=== PATIENT | male | born 1995 | race Caucasian/White ===

== ENCOUNTER 2022-03-30 14:28 | Observation (INO) | payer OTHER ==
[~2022-03-30] VITALS: Ht 175.3 cm; Wt 63.5 kg
[2022-03-30 14:59] LABS: RED BLOOD COUNT 5.23 M/UL (4.20-5.50); WHITE BLOOD COUNT 18.2 K/UL (4.5-11.0)
[2022-03-30 15:18] LABS: BUN/CREATININE RATIO 11 (0-10)
[2022-03-31 06:25] LABS: HEMOGLOBIN 14.9 gm/dl (14.0-17.5); RED BLOOD COUNT 5.05 M/UL (4.20-5.50)
[2022-03-31 06:33] LABS: WHITE BLOOD COUNT 8.7 K/UL (4.5-11.0)
[2022-03-31 06:49] LABS: BUN/CREATININE RATIO 13 (0-10)
== END 2022-03-31 11:25 | disposition home or self-care (01) ==
LOC: ER1 14:28 → CDU 16:50 → MED SURG 4 16:50
PROVIDERS: Physician Assistant; ADMIT Internal Medicine
DX: R10.9 Unspecified abdominal pain (principal); R74.8 Abnormal levels of other serum enzymes; R31.29 Other microscopic hematuria; K59.00 Constipation, unspecified; D72.829 Elevated white blood cell count, unspecified; Z72.0 Tobacco use; Z88.0 Allergy status to penicillin
CPT/HCPCS: 36415; 71046; 80053; 80061; 80307; 81001; 83690; 83735; 85025; 87040; 96374; 96375; 96376; 99285; G0378; J1956; J2270; J2405; Q9967